=== PATIENT | female | born 1955 | race Caucasian/White ===

== ENCOUNTER 2021-05-27 11:54 | Emergency (ER) | payer MEDICARE, BC, SELFPAY ==
[2021-05-27 12:08] VITALS: BP 117/67; PULSE 153; RESP 17; TEMP 36.8; O2SAT 98; BMI 19.9
[2021-05-27 12:37] VITALS: BP 142/93; PULSE 134; RESP 16; TEMP 36.8
--- NOTE | 2021-05-27 12:37 | ECG_ITS ---
[facility] Test Date: 2021-05-27 Pat Name: Raquel Frank Department: Room: Gender: Female School Manager: : 1955 Requested By: Beny Amador Order Number: [id number] Deidre MD: Usha Silverio M.D. Measurements Intervals [place] Rate: 128 P: 143 [place]: 145 QRS: 145 QRSD: 73 T: 151 QT: 269 QTc: 394 Interpretive Statements SINUS RHYTHM WITH A POSSIBLE RUN OF PAT -sinus rate of 94 bpm. The tachycardia rate was 150 bpm ARM LEADS REVERSED [INVERTED P AND QRS IN I] ABNORMAL RHYTHM ECG No previous ECG available for comparison Defective EKG Electronically Signed On 05-28-2021 17:40:14 CDT by Usha Silverio M.D. [id number]
--- NOTE | 2021-05-27 12:37 | XRR_ITS ---
PROCEDURE INFORMATION: Exam: XR Chest Exam date and time: 05/27/2021 12:37 PM Age: 65 years old Clinical indication: Dyspnea; Additional info: Palpitations and increased hr TECHNIQUE: Imaging protocol: XR of the chest. Views: 1 view. COMPARISON: MRI Shoulder w/o LEFT* [id number] 06/14/2017 1:58 PM FINDINGS: Lungs: Unremarkable. No consolidation. Pleural spaces: Unremarkable. No pleural effusion. No pneumothorax. Heart/Mediastinum: Unremarkable. No cardiomegaly. Bones/joints: Unremarkable. XR/XR chest 1V portable [id number] IMPRESSION: No acute findings.
--- NOTE | 2021-05-27 12:39 | W.ED.ARRPALP ---
HPI - Arrhythmia/Palpitations General: Chief Complaint: Arrhythmia/Palpitations Stated Complaint: HIGH HR Time Seen by Provider: 05/27/21 12:33 History of Present Illness: HPI narrative: This patient is a 65-year-old female presents to the emergency department complaining of palpitations and high heart rate. According to medical records and the patient states that this pain started about 2 months ago and has been intermittent. She states this morning her heart rate was around 190. Patient states that her blood pressures been running around 150s. Sitter is at high. Patient is otherwise healthy. Does state that she used to smoke but has stopped recently. Patient does take Synthroid for abnormal thyroid. Will do medical evaluation treat as needed MD complaint: rapid heart beat and palpitations Onset (ago): hour(s) Duration: intermittent Severity: moderate Context: occurred during rest Associated symptoms: Reports no associated symptoms; Deny anxiety, nausea or vomiting Review of Systems General: Reports: 10 or more systems reviewed and unremarkable except in HPI and below Const: Denies: fever(s), chills, body aches or fatigue Eyes: Denies: change in vision or blurry vision ENMT: Denies: throat pain, hoarseness or mouth pain Card: Reports: palpitations; Denies: chest pain, irregular heart rhythm, edema, swelling of feet/ankles or lightheadedness Resp: Denies: dyspnea, productive cough, non-productive cough, wheezing or pain on inspiration GI: Denies: abdominal pain, nausea or vomiting : Denies: flank pain, difficulty voiding, dysuria, urinary frequency, urinary urgency or urinary hesitancy Musc: Denies: neck pain, back pain, extremity pain, extremity swelling, joint pain, joint swelling, joint redness, joint warmth or limited range of motion Skin/Breast: Denies: rash, pruritus, erythema or skin tenderness Neuro: Denies: headache(s), numbness in extremities or weakness in extremities Psych: Denies: anxiety or depression Physical Exam Const: COMMON NORMALS: no acute distress, average body habitus, patient oriented x3, no limitations, healthy appearing, alert and well nourished HENMT: COMMON NORMALS: normocephalic, atraumatic, hearing grossly normal bilaterally, external ears normal, EAC's normal, TM's normal bilaterally, Normal external nose present, Normal nasal mucous membranes and turbinates present, moist oral mucous membranes, oropharynx normal, dentition normal and gingiva normal HEAD & SCALP: normocephalic and atraumatic NOSE: Normal external nose present and Normal nasal mucous membranes and turbinates present EXTERNAL EAR: Yes external ears normal EXTERNAL AUDITORY CANAL: EAC's normal TYMPANIC MEMBRANE: TM's normal bilaterally Neck/C-Spine: COMMON NORMALS: full ROM, no lymphadenopathy, supple, no meningeal signs, no JVD, Thyroid normal and No carotid bruits THYROID: Thyroid normal Chest: COMMONS NORMALS: normal inspection of the chest, normal palpation of entire chest wall, normal inspection of the breasts and normal palpation of the breasts Breast/axilla inspection: Yes normal inspection of the breasts BREAST/AXILLA PALPATION: Yes normal palpation of the breasts Resp: COMMON NORMALS: normal respiratory effort, No retractions, No use of accessory muscles, clear to auscultation bilaterally and percussion normal AUSCULTATION: clear to auscultation bilaterally PERCUSSION: percussion normal Cardio: COMMON NORMALS: no JVD, regular rhythm, S1 normal heart sound present, S2 normal heart sound present, No gallops present (Cardio), No clicks present (Cardio), No murmurs present (Cardio), No rub (Cardio) and Peripheral pulses 2+ throughout RATE: tachycardic RHYTHM: regular rhythm HEART SOUNDS: S1 normal heart sound present and S2 normal heart sound present PERIPHERAL PULSES: Peripheral pulses 2+ throughout GI: COMMON NORMALS: Normal to inspection, nondistended, normoactive bowel sounds present, Soft to palpation, non-tender, No hepatosplenomegaly present, no masses and no bruits PALPATION: Yes Soft to palpation and Yes No hepatosplenomegaly present : COMMON NORMALS: Yes no CVA tenderness, Yes normal external appearance, Yes normal appearance of the vagina, Yes normal appearance of the cervix, Yes normal bimanual exam, Yes No adnexal tenderness and Yes no masses BLADDER/KIDNEY EXAM: Yes no CVA tenderness BIMANUAL EXAM - VAGINA & UTERUS: Yes normal bimanual exam Back/Pelvis: COMMON NORMALS: no CVA tenderness, thoracic and lumbar spine normal to inspection, no thoracic nor lumbar tenderness, thoraco-lumbar ROM normal and straight leg raise negative bilaterally Extremity: COMMON NORMALS: normal to inspection, full ROM, capillary refill normal, no joint enlargement, no clubbing, cyanosis or edema, no calf tenderness and no pedal edema Neuro: COMMON NORMALS: patient oriented x3 SENSORIUM/ORIENTATION: Yes alert MENINGEAL SIGNS: Yes no meningeal signs Course Reevaluation(s): Reevaluation #1: Patient is feeling much improved. Has no more palpitations. Heart rate is 66 with a blood pressure 118/78. Discussed at length with patient about findings. Patient be started on atenolol 25 mg daily. Patient will be advised to follow-up with cardiology for outpatient evaluation of arrhythmia. Patient and family state understanding patient is to avoid caffeinated drinks. Time: 13:50 Vital Signs: Vital signs: Vital Signs Temperature 98.2 F 05/27/21 12:37 Pulse Rate 68 05/27/21 13:27 Respiratory Rate 16 05/27/21 12:37 Blood Pressure 118/72 05/27/21 13:27 Pulse Oximetry 98 05/27/21 13:27 MDM - Arrhythmia/Palpitations MDM Narrative: Medical decision making narrative: Patient is feeling much improved. Has no more palpitations. Heart rate is 66 with a blood pressure 118/78. Discussed at length with patient about findings. Patient be started on atenolol 25 mg daily. Patient will be advised to follow-up with cardiology for outpatient evaluation of arrhythmia. Patient and family state understanding patient is to avoid caffeinated drinks. Medical Records: Attestation: I reviewed the patient's medical records. Lab Data: Attestation: I reviewed the patient's lab results. Labs: Lab Results 05/27/21 05/27/21 05/27/21 Range/Units 12:47 12:47 12:47 WBC 7.1 (4.0-10.0) 10^3/ uL RBC 4.49 (4.1-5.3) 10^6/u L Hgb 13.6 (11.5-15.3) g/dL Hct 42.6 (37.0-47.0) % MCV 94.9 (81-99) fl MCH 30.3 (28.0-34.0) pg MCHC 31.9 (30.0-36.0) g/dL RDW 14.6 (12.1-15.1) % Plt Count 274 (130-400) 10^3/c mm MPV 11.8 H (7.4-10.4) fL Neut % (Auto) 59.2 % Lymph % (Auto) 31.6 % [place] % (Auto) 6.3 % Eos % (Auto) 1.4 % Baso % (Auto) 1.1 % Neut # (Auto) 4.22 (1.8-7.7) 10^3/u L Lymph # (Auto) 2.3 (0.8-4.8) 10^3/u L [place] # (Auto) 0.5 (0.2-0.9) 10^3/u L Eos # (Auto) 0.1 (0.0-0.8) 10^3/u L Baso # (Auto) 0.1 (0.0-0.1) 10^3/u L Nucleated RBC % (a uto) 0 % Nucleated RBCs # 0.0 /100WBC PT 12.70 (12.1-14.9) SECO NDS INR 0.93 (0.8-1.2) APTT 26.2 (23.9-36.7) SECO NDS Sodium 144 (136-145) mmol/L Potassium 3.3 L (3.5-5.1) mmol/L Chloride 101 (98-107) mmol/L Carbon Dioxide 30 H (22-29) mmol/L Anion Gap 16.3 (5-19) BUN 11 (8-23) mg/dL Creatinine 0.9 (0.5-0.9) mg/dL GFR Calculation 62.6 L (90-130) mL/min Glucose 127 H (65-115) mg/dL Calculated Osmolal ity 299 H (285-295) mOsm/k g Calcium 9.6 (8.5-10.5) mg/dL Total Bilirubin 0.4 (0.15-1.2) mg/dL AST 19 (0-32) U/L ALT 12 (0-33) U/L Alkaline Phosphata se 54 (35-105) IU/L Troponin T Baselin e (0-10) ng/L NT-Pro-B Natriuret Pep 393 H (0-125) pg/mL Total Protein 6.8 (6.6-8.7) g/dL Albumin 4.5 (3.5-5.2) g/dL Globulin 2.3 (1.3-4.6) g/dL TSH 1.59 (0.27-4.20) uIU/ mL 05/27/21 Range/Units 12:47 WBC (4.0-10.0) 10^3/ uL RBC (4.1-5.3) 10^6/u L Hgb (11.5-15.3) g/dL Hct (37.0-47.0) % MCV (81-99) fl MCH (28.0-34.0) pg MCHC (30.0-36.0) g/dL RDW (12.1-15.1) % Plt Count (130-400) 10^3/c mm MPV (7.4-10.4) fL Neut % (Auto) % Lymph % (Auto) % [place] % (Auto) % Eos % (Auto) % Baso % (Auto) % Neut # (Auto) (1.8-7.7) 10^3/u L Lymph # (Auto) (0.8-4.8) 10^3/u L [place] # (Auto) (0.2-0.9) 10^3/u L Eos # (Auto) (0.0-0.8) 10^3/u L Baso # (Auto) (0.0-0.1) 10^3/u L Nucleated RBC % (a uto) % Nucleated RBCs # /100WBC PT (12.1-14.9) SECO NDS INR (0.8-1.2) APTT (23.9-36.7) SECO NDS Sodium (136-145) mmol/L Potassium (3.5-5.1) mmol/L Chloride (98-107) mmol/L Carbon Dioxide (22-29) mmol/L Anion Gap (5-19) BUN (8-23) mg/dL Creatinine (0.5-0.9) mg/dL GFR Calculation (90-130) mL/min Glucose (65-115) mg/dL Calculated Osmolal ity (285-295) mOsm/k g Calcium (8.5-10.5) mg/dL Total Bilirubin (0.15-1.2) mg/dL AST (0-32) U/L ALT (0-33) U/L Alkaline Phosphata se (35-105) IU/L Troponin T Baselin e 6 (0-10) ng/L NT-Pro-B Natriuret Pep (0-125) pg/mL Total Protein (6.6-8.7) g/dL Albumin (3.5-5.2) g/dL Globulin (1.3-4.6) g/dL TSH (0.27-4.20) uIU/ mL Imaging Data^: CXR: Attestation: I personally reviewed and interpreted this imaging study as follows: My impression: Negative for acute findings EKG Data^: EKG 1: Attestation: I personally reviewed and interpreted this EKG as follows: EKG interpretation date: 05/27/21 EKG interpretation time: 12:25 Prior EKG tracings: available for review Ischemic changes: non-specific ST-T wave changes Interpretation: Sinus tachycardia nonspecific EKG changes heart rate 128 Discharge Plan Discharge Patient Disposition: Home Clinical Impression: Palpitations, Sinus tachycardia Condition: Stable Prescriptions: New atenolol 25 mg tablet 25 mg PO DAILY Qty: 30 RF: 0 No Action potassium chloride 10 mEq capsule, extended release 10 meq PO DAILY RF: 0 metformin 1,000 mg tablet 1,000 mg PO DAILY RF: 0 levothyroxine 50 mcg capsule 50 mcg PO DAILY RF: 0 allopurinol 300 mg tablet 300 mg PO DAILY RF: 0 atorvastatin 10 mg tablet 10 mg PO DAILY RF: 0 furosemide 20 mg tablet 20 mg PO DAILY RF: 0 Discharge Orders: Discharge ED (Routine); Ordered 05/27/21 Ordered By: Beny Amador Other Ambulatory Orders: Request for [facility] (Routine) Timeframe: 1 Day Facility: [facility] - Location: [facility] Ordered By: Beny Amador Referrals: Javid Figueroa DO [Primary Care Provider] - Usha Silverio MD [Physician] - Discharge Diet: Advance as tolerated Discharge Activity: Resume usual activity Patient Instructions: Opioid Safety Activity Restrictions/Additional Instructions: Take medications as prescribed. Avoid caffeine. Follow-up with cardiology as instructed. You must call to make your appointment. Coding Level of Care Code ED Sandblaster Supervisor for Chg Fwd Exam Comprehensive
[2021-05-27] MEDS: sodium chloride 0.9% 500 ML 999 ML IV (12:49)
[2021-05-27] MEDS: metoprolol tartrate 1 mg/1 mL SDV 5 mL 5 MG IVP (12:49)
[2021-05-27 12:56] VITALS: BP 142/93; PULSE 69; O2SAT 97
[2021-05-27 12:57] LABS: Basophils # 0.1 10^3/uL (0.0-0.1); Basophils % 1.1 %; Eosinophils # 0.1 10^3/uL (0.0-0.8); Eosinophils % 1.4 %; Hematocrit 42.6 % (37.0-47.0); Hemoglobin 13.6 g/dL (11.5-15.3); Lymphocytes # 2.3 10^3/uL (0.8-4.8); Lymphocytes % 31.6 %; Mean Corpuscular HGB Conc 31.9 g/dL (30.0-36.0); Mean Corpuscular Hemoglobin 30.3 pg (28.0-34.0); Mean Corpuscular Volume 94.9 fl (81-99); Mean Platelet Volume 11.8 fL (7.4-10.4); Monocytes # 0.5 10^3/uL (0.2-0.9); Monocytes % 6.3 %; Neutrophils # 4.22 10^3/uL (1.8-7.7); Neutrophils % 59.2 %; Nucleated Red Blood Cells % 0 %; Platelet Count 274 10^3/cmm (130-400); Red Blood Count 4.49 10^6/uL (4.1-5.3); Red Cell Distribution Width 14.6 % (12.1-15.1); White Blood Count 7.1 10^3/uL (4.0-10.0)
[2021-05-27 13:11] LABS: INR 0.93 (0.8-1.2)
[2021-05-27 13:12] LABS: Partial Thromboplastin Time 26.2 SECONDS (23.9-36.7)
[2021-05-27 13:23] LABS: Troponin(5th) Baseline 6 ng/L (0-10)
[2021-05-27 13:27] VITALS: BP 118/72; PULSE 68; O2SAT 98
[2021-05-27 13:30] LABS: Alanine Aminotransferase 12 U/L (0-33); Albumin Level 4.5 g/dL (3.5-5.2); Alkaline Phosphatase 54 IU/L (35-105); Anion Gap 16.3 (5-19); Aspartate Amino Transferase 19 U/L (0-32); Blood Urea Nitrogen 11 mg/dL (8-23); Calcium 9.6 mg/dL (8.5-10.5); Carbon Dioxide 30 mmol/L (22-29); Chloride 101 mmol/L (98-107); Globulin 2.3 g/dL (1.3-4.6); Glomerular Filtration Rate 62.6 mL/min (90-130); Glucose 127 mg/dL (65-115); NT Pro B Type Natriuretic Pept 393 pg/mL (0-125); Osmolality Calculated 299 mOsm/kg (285-295); Potassium 3.3 mmol/L (3.5-5.1); Sodium 144 mmol/L (136-145); Thyroid Stimulating Hormone 1.59 uIU/mL (0.27-4.20); Total Bilirubin 0.4 mg/dL (0.15-1.2); Total Protein 6.8 g/dL (6.6-8.7)
[2021-05-27 14:10] VITALS: BP 115/69; PULSE 66; O2SAT 100
== END 2021-05-27 14:16 | disposition home or self-care (01) ==
PROVIDERS: Emergency Provider Emergency Medicine; PCP Family Medicine
DX: R00.2 Palpitations (principal); R00.0 Tachycardia, unspecified; Z79.84 Long term (current) use of oral hypoglycemic drugs
CPT/HCPCS: 71045; 80053; 83880; 84443; 84484; 85025; 85610; 85730; 93005; 96374; 99284; J3490; J7040